=== PATIENT | female | born 1965 | race Caucasian/White ===

== ENCOUNTER → 2024-02-06 | Outpatient (CLI) | payer OTHER ==
--- NOTE | 2024-02-06 11:46 | HMCIMG ---
DEXA BONE DENSITY SURVEY REASON: ASYMPTOMATIC MENOPAUSAL STATE COMPARISON: None TECHNIQUE: DEXA bone densitometry was performed in the lumbar spine and left hip. FINDINGS: Mean bone mass density in the spine is 1.067 g/sq cm, T score 0.2, within normal limits. Femoral neck T score however is -1.1 consistent with osteopenia. IMPRESSION: 1. Osteopenia correlated with a moderate fracture risk.
== END | disposition home or self-care (01) ==
LOC: RAH 08:05
PROVIDERS: ATTEND Physician Assistant
DX: M85.88 Other specified disorders of bone density and structure, other site (principal); Z78.0 Asymptomatic menopausal state
CPT/HCPCS: 77080